=== PATIENT | male | born 1980 | race Two or more races ===

== ENCOUNTER 2024-10-18 10:07 | Emergency (ER) | payer BC, OTHER ==
[~2024-10-18] VITALS: Ht 177.8 cm; Wt 88.0 kg
[2024-10-18 10:38] VITALS: BP 145/97; PULSE 99; RESP 16; TEMP 98.2; O2SAT 97
--- NOTE | 2024-10-18 10:53 | ED.PDOC ---
History of Present Illness HPI Comments A 44 YEAR OLD MALE PRESENTS TO THE ED WITH COMPLAINT OF REDNESS AND SWELLING OF LEFT 3RD FINGER. PATIENT STATES HE WAS CLIPPING HIS NAILS RECENTLY AND BEGAN TO EXPERIENCE REDNESS AND SWELLING TO HIS LEFT 3RD FINGER 3 DAYS AGO. PATIENT IS CONCERNED HE MAY HAVE AN INFECTION TO THIS AREA. PATIENT NOTES HE HAS A HISTORY OF DIABETES. PATIENT DENIES FEVER, CHILLS, SHORTNESS OF BREATH, CHEST PAIN, ABDOMINAL PAIN, NAUSEA, VOMITING, HEADACHE, OR OTHER COMPLAINTS. NO OTHER SYMPTOMS OR MODIFYING FACTORS AT THIS TIME. PATIENT IS ALERT, ORIENTED X 4, AND HAS STEADY GAIT. Chief Complaint: Wound Check Time Seen by MD: 10:23 Primary Care Provider: [facility] Reviewed Notes: Nurses Notes, Medications, Allergies Allergies: Coded Allergies: NO KNOWN ALLERGIES (Unverified , 10/18/24) Home Meds Active Scripts Cephalexin Monohydrate (Cephalexin) 500 Mg Cap, 1 CAP PO QID, #28 CAP Prov:CARIDAD KESSLER ELISHA 10/18/24 Information Source: Patient Mode of Arrival: Ambulatory Severity: Moderate Timing: Days Duration: Since onset, Days Prehospital treatment: None Medication Refill: For: Other (PARONYCHIA OF LEFT 3RD FINGER) Past Medical History PAST MEDICAL HISTORY: DM Surgical History: Denies all surgeries Family History Family History: Reviewed,noncontributory to illness Social History Alcohol: Denies ETOH Use Drugs: Denies Drug Use Lives In: Home Constitutional: denies: chills, diaphoresis, fatigue, fever, malaise, sweats, weakness, others EENTM: denies: blurred vision, double vision, ear bleeding, ear discharge, ear drainage, ear pain, ear ringing, eye pain, eye redness, hearing loss, mouth pain, mouth swelling, nasal discharge, nose bleeding, nose congestion, nose pain, photophobia, tearing, throat pain, throat swelling, voice changes, others Respiratory: denies: cough, hemoptysis, orthopnea, SOB at rest, shortness of breath, SOB with excertion, stridor, wheezing, others Cardiovascular: denies: chest pain, dizzy spells, diaphoresis, Dyspnea on exertion, edema, irregular heart beat, left arm pain, lightheadedness, palpitations, PND, syncope, others Gastrointestinal: denies: abdomen distended, abdominal pain, blood streaked bowels, constipated, diarrhea, dysphagia, difficulty swallowing, hematemesis, melena, nausea, poor appetite, poor fluid intake, rectal bleeding, rectal pain, vomiting, others Genitourinary: denies: burning, dysuria, flank pain, frequency, hematuria, incontinence, penile discharge, penile sore, pain, testicle pain, testicle swelling, urgency, others Neurological: denies: dizziness, fainting, headache, left sided numbness, left sided weakness, numbness, paresthesia, pre-existing deficit, right sided numbn ess, right sided weakness, seizure, speech problems, tingling, tremors, weakness, others Musculoskeletal: denies: back pain, gout, joint pain, joint swelling, muscle pain, muscle stiffness, neck pain, others Integumetry: reports: others (PARONYCHIA OF LEFT 3RD FINGER); denies: bruises, change in color, change in hair/nails, dryness, laceration, lesions, lumps, rash, wounds Allergic/Immunocompromised: denies: Difficulty Healing, Frequent Infections, Hives, Itching, others Hematologic/Lymphatic: denies: anemia, blood clots, easy bleeding, easy bruising, swollen glands, others Endocrine: denies: excessive hunger, excessive sweating, excessive thirst, excessive urination, flushing, intolerance to cold, intolerance to heat, unexplained weight gain, unexplained weight loss, others Psychiatric: denies: anxiety, bipolar disorder, depression, hopeless, panic disorder, schizophrenia, sleepless, suicidal, others All Other Systems: Reviewed and Negative Physical Exam General Appearance: No Apparent Distress, Normal HEENT: Normal ENT Inspection, PERRL/EOMI, Pharynx Normal, TMs Normal Neck: Full Range of Motion, Non-Tender, Normal, Normal Inspection Respiratory: Chest Non-Tender, Lungs Clear, No Accessory Muscle Use, No Respiratory Distress, Normal Breath Sounds Cardiovascular: No Edema, No JVD, No Murmur, No Gallop, Normal Peripheral Pulses, Regular Rate/Rhythm Breast Exam: Deferred Gastrointestinal: No Organomegaly, Non Tender, No Pulsatile Mass, Normal Bowel Sounds, Soft Genitalia: Deferred Pelvic: Deferred Rectal: Deferred Extremities: No calf tenderness, Normal capillary refill, Normal range of motion, No pedal edema, Tender (WITH REDNESS AND SWELLING ON LEFT 3RD FINGER.+PHARONYCHIA. ) Musculoskeletal : Apperance: Normal Neurologic: Alert, medical and scientific illustrator II-XII nml as Tested, No Motor Deficits, Normal Affect, Normal Mood, No Sensory Deficits Cerebellar Function: Normal Reflexes: Normal Skin: Dry, Warm, Wounds (PHARONYCHIA WOUND WITH LOCALIZED REDNESS AND TENDERNESS ON LEFT 3RD FINGER, MILD PUS DRAINAGE. ) Peripheral Pulses: 2+ carotid (R), 2+ carotid (L) Lymphatic: No Adenopathy Was a procedure done? Was a procedure done?: Yes Sedation Sedation?: No Incision and Drainage Incision and Drainage: Other (PARONYCHIA) Location LEFT 3RD FINGER Preparation: Saline Incision and Wound: Pus, Blood, Irrigated Informed consent obtained: No Risks/benefits/alt described: Yes Notes AN 18 GAUGE NEEDLE WAS USED TO POKE A HOLE INTO THE PATIENT'S PARONYCHIA OF HIS LEFT 3RD FINGER. PUS AND BLOOD WERE DRAINED FROM THE AFFECTED AREA. PATIENT'S WOUND WAS THEN IRRIGATED WITH NORMAL SALINE. PATIENT TOLERATED WELL. Differential Dx Considerations may include: PARONYCHIA, SOFT TISSUE INFECTION, INGROWN NAIL X-Ray, Labs, Meds, VS Vital Signs Date Time Temp Pulse Resp B/P (MAP) Pulse Ox O2 Delivery O2 Flow Rate FiO2 10/18/24 10:38 99 16 97 Room Air 10/18/24 10:38 98.2 99 16 145/97 (113) 97 98.2 10/18/24 10:17 98.2 99 16 145/97 (113) 97 98.2 X-Ray, Labs, Meds, VS Comment EXTERNAL MEDICAL RECORDS REVIEWED: [NONE] INDEPENDENT HISTORIANS: [NONE] SOCIAL DETERMINANTS OF HEALTH: [NONE] LABS ORDERED: NONE REVIEWED AND INTERPRETED RESULTS: NONE IMAGING ORDERED: NONE TREATMENTS ORDERED: PARONYCHIA OF LEFT 3RD FINGER WAS DRAINED. SEE PROCEDURE SECTION PROCEDURES PERFORMED: INCISION AND DRAINAGE, SEE PROCEDURE SECTION. CRITICAL CARE TIME: NONE I HAVE DISCUSSED THE PATIENT WITH THE ATTENDING PHYSICIAN DR. TRAN AND HE AGREES WITH THE PATIENT'S PLAN OF CARE AND DISPOSITION. BASED ON HISTORY OF PRESENT ILLNESS, AND PHYSICAL EXAM, PATIENT WILL BE DISCHARGED HOME. DISCUSSED PLAN FOR DISCHARGE HOME WITH RX [KEFLEX]. MEDICATION WARNINGS GIVEN. SHARED DECISION MAKING: PATIENT INSTRUCTED TO FOLLOW UP WITH PRIMARY CARE PROVIDER IN 1-2 DAYS FOR RE-EVALUATION OF SYMPTOMS. PATIENT VERBALIZES UNDERSTANDING TO RETURN TO ED FOR NEW OR WORSENING SYMPTOMS OR IF FOLLOW UP WITH PCP CANNOT BE OBTAINED. PATIENT FEELS COMFORTABLE GOING HOME AT THIS TIME. ALL QUESTIONS ADDRESSED AT TIME OF DISCHARGE. Time of 1ST Reevaluation: 11:20 Reevaluation 1ST: Improved Patient Education/Counseling: Diagnosis, Treatment, Need For Follow Up Family Education/Counseling: Diagnosis, Treatment, Need For Follow Up Medical Screening: No EMC Exist At This Time Departure 1 Departure Time of Disposition: 11:20 Impression: Primary Impression: Paronychia of left middle finger Disposition: 01 HOME / SELF CARE / HOMELESS Condition: Stable Additional Instructions: FOLLOW-UP WITH PCP IN 1 TO 2 DAYS. TAKE MEDICATIONS PRESCRIBED. RETURN TO ED FOR ANY NEW OR WORSENING SYMPTOMS. e-Prescriptions Cephalexin Monohydrate (Cephalexin) 500 Mg Cap 1 CAP PO QID, #28 CAP Prov: CARIDAD KESSLER 10/18/24 Discharged With: Self, Spouse Critical Care Note Critical Care Time?: No Stability Stability form required: No I personally scribed for CARIDAD KESSLER ([email or web address]) on 10/18/24 at 10:53. Electronically submitted by Geovani Vincent ([email or web address]). CARIDAD KESSLER Oct 18, 2024 10:53
[2024-10-18] MEDS ORDERED: CEPH500C PO (10:54)
== END 2024-10-18 11:09 | disposition home or self-care (01) ==
LOC: ER 10:07
DX: L03.012 Cellulitis of left finger (principal); E11.9 Type 2 diabetes mellitus without complications
CPT/HCPCS: 10060